=== PATIENT | female | born 1970 | race Two or more races ===

== ENCOUNTER 2019-12-08 11:43 | Emergency (ER) | payer OTHER ==
[~2019-12-08] VITALS: Ht 167.6 cm; Wt 109.0 kg
[2019-12-08 12:48] LABS: CLARITY URINE CLOUDY (CLEAR); COLOR URINE YELLOW (YELLOW); KETONES URINE NEGATIVE (NEGATIVE); LEUKOCYTE ESTERASE URINE NEGATIVE (NEGATIVE); NITRITE URINE NEGATIVE (NEGATIVE); OCCULT BLOOD URINE TRACE (NEGATIVE); PROTEIN URINE 2+ (NEGATIVE); SPECIFIC GRAVITY URINE 1.017 (1.005-1.030); UROBILINOGEN URINE 0.2 E.U./dL (0.2-1.0)
[2019-12-08 12:55] LABS: CHLORIDE 107 mEq/L (98-107)
[2019-12-08 12:56] LABS: EOSINOPHILS % 4.9 % (0.0-5.0); HEMATOCRIT. 40.8 % (36.0-48.0); HEMOGLOBIN. 13.9 g/dL (12.0-16.0); LYMPHOCYTES % 28.6 % (20.0-50.0); MEAN CORPUSCULAR HEMOGLOBIN 30.6 pg (28.0-32.0); MEAN CORPUSCULAR VOLUME 90.1 fL (81.0-99.0); MEAN PLATELET VOLUME 8.2 fl (7.4-10.4); MONOCYTES % 6.5 % (2.0-8.0); PLATELET 293 x1000/uL (130-400); RED BLOOD CELL COUNT 4.53 mill/uL (4.2-5.4); RED CELL DISTRIBUTION WIDTH 13.8 % (11.6-14.6)
[2019-12-08 12:59] LABS: ETHANOL BLOOD < 10 mg/dL
[2019-12-08] MEDS ORDERED: SODIUM CHLORIDE 0.9% 1,000 ML IV ONE (13:00)
[2019-12-08] MEDS ORDERED: METOCLOPRAMIDE HCL 10MG/2ML VIAL IV ONE (13:00)
[2019-12-08 13:32] LABS: *AMPHETAMINES SCREEN URINE NEGATIVE (NEGATIVE); *BARBITURATES SCREEN URINE NEGATIVE (NEGATIVE); *BENZODIAZEPINES SCREEN URINE NEGATIVE (NEGATIVE); *COCAINE SCREEN URINE NEGATIVE (NEGATIVE); PHENCYCLIDINE URINE SCREEN NEGATIVE (NEGATIVE)
[2019-12-08 13:33] LABS: METHADONE URINE SCREEN NEGATIVE (NEGATIVE); OPIATES URINE SCREEN NEGATIVE (NEGATIVE)
[2019-12-08 13:39] LABS: CANNABINOID URINE SCREEN PRESUMTIVE POSITIVE (NEGATIVE)
[2019-12-08 15:39] VITALS: BP 11/53
== END 2019-12-08 15:41 | disposition home or self-care (01) ==
LOC: ER 11:43
DX: G40.909 Epilepsy, unspecified, not intractable, without status epilepticus (principal); F43.10 Post-traumatic stress disorder, unspecified
CPT/HCPCS: 36415; 70450; 71045; 80053; 80305; 80320; 81003; 85025; 96374; 99285; J2765; J7030; G0480

== ENCOUNTER 2022-01-03 16:03 | Emergency (ER) | payer OTHER ==
[~2022-01-03] VITALS: Ht 162.6 cm; Wt 95.0 kg
[2022-01-03] MEDS ORDERED: SODIUM CHLORIDE 0.9% 1,000 ML IV ONE ×2 (16:30→19:45)
[2022-01-03] MEDS ORDERED: ONDANSETRON HCL 4MG/2ML INJ IV ONE (16:45)
[2022-01-03] MEDS ORDERED: LEVETIRACETAM 500MG PREMIX 100 ML IV ONE ×2 (16:45)
[2022-01-03 17:10] LABS: BASOPHILS % 0.5 % (0.0-2.0); EOSINOPHILS % 0.1 % (0.0-5.0); HEMATOCRIT. 41.3 % (36.0-48.0); HEMOGLOBIN. 14.3 g/dL (12.0-16.0); LYMPHOCYTES % 10.8 % (20.0-50.0); MEAN CORPUSCULAR HEMOGLOBIN 30.1 pg (28.0-32.0); MEAN CORPUSCULAR VOLUME 87.2 fL (81.0-99.0); MEAN PLATELET VOLUME 8.6 fl (7.4-10.4); MONOCYTES % 9.6 % (2.0-8.0); PLATELET 338 x1000/uL (130-400); RED BLOOD CELL COUNT 4.74 mill/uL (4.2-5.4); RED CELL DISTRIBUTION WIDTH 13.6 % (11.6-14.6)
[2022-01-03 17:11] LABS: CHLORIDE 107 mEq/L (98-107)
[2022-01-03] MEDS ORDERED: FAMOTIDINE 20MG/2ML VIAL IV ONE (17:15)
[2022-01-03] MEDS ORDERED: KETOROLAC 30MG/ML VIAL IV ONE (17:30)
[2022-01-03 19:10] LABS: CLARITY URINE CLOUDY (CLEAR); COLOR URINE DK YELLOW (YELLOW); KETONES URINE TRACE (NEGATIVE); LEUKOCYTE ESTERASE URINE NEGATIVE (NEGATIVE); NITRITE URINE NEGATIVE (NEGATIVE); OCCULT BLOOD URINE TRACE (NEGATIVE); PROTEIN URINE 1+ (NEGATIVE); SPECIFIC GRAVITY URINE 1.028 (1.005-1.030)
[2022-01-03] MEDS ORDERED: CEFTRIAXONE 1 G PREMIX 50 ML IV ONE (19:45)
[2022-01-03] MEDS ORDERED: ACETAMINOPHEN 325MG TABLET PO ONE (19:45)
[2022-01-04] MEDS ORDERED: SODIUM CHLORIDE 0.9% 1,000 ML IV ONE (04:15)
[2022-01-04] MEDS ORDERED: ONDANSETRON HCL 4MG/2ML INJ IV ONE (04:15)
[2022-01-04] MEDS ORDERED: ZONISAMIDE 100MG CAPSULE PO SCH (09:00)
[2022-01-04] MEDS ORDERED: OXCARBAZEPINE 300MG TABLET PO SCH (09:00)
[2022-01-04 10:42] VITALS: BP 113/58
== END 2022-01-04 10:44 | disposition left against medical advice (07) ==
LOC: ER 16:03 → CANBEDREQ 01-04 10:24 → ER 01-04 10:44
DX: K52.9 Noninfective gastroenteritis and colitis, unspecified (principal); N12 Tubulo-interstitial nephritis, not specified as acute or chronic; R11.2 Nausea with vomiting, unspecified; G40.909 Epilepsy, unspecified, not intractable, without status epilepticus; Z20.822 Contact with and (suspected) exposure to COVID-19
CPT/HCPCS: 36415; 80053; 81003; 83690; 85025; 87426; 96361; 96365; 96366; 96367; 96368; 96375; 96376; 99285; J0696; J1885; J1953; J2405; J3490; J7030